=== PATIENT | female | born 1985 | race Asian ===

== ENCOUNTER 2020-01-06 22:26 | Observation (INO) | payer OTHER ==
[~2020-01-06] VITALS: Ht 157.5 cm; Wt 63.5 kg
[2020-01-06] MEDS: TERBUTALINE SULFATE 1MG/ML VIAL SUBCUT PRN (23:52)
[2020-01-06] MEDS: LACTATED RINGERS 1,000 ML IV SCH (23:54)
[2020-01-07] MEDS: LACTATED RINGERS 1,000 ML IV SCH ×5 (01:59→20:06)
[2020-01-07] MEDS ORDERED: BETAMETHASONE ACET/BETAMET 30 MG/5 ML VIAL IM ONE (02:00)
[2020-01-07] MEDS: TERBUTALINE SULFATE 1MG/ML VIAL SUBCUT PRN (02:38)
[2020-01-07 03:15] LABS: CLARITY URINE CLEAR (CLEAR); COLOR URINE YELLOW (YELLOW); KETONES URINE 3+ (NEGATIVE); LEUKOCYTE ESTERASE URINE NEGATIVE (NEGATIVE); NITRITE URINE NEGATIVE (NEGATIVE); OCCULT BLOOD URINE NEGATIVE (NEGATIVE); PROTEIN URINE NEGATIVE (NEGATIVE); SPECIFIC GRAVITY URINE 1.005 (1.005-1.030); UROBILINOGEN URINE 0.2 E.U./dL (0.2-1.0)
[2020-01-07] MEDS ORDERED: ACETAMINOPHEN 500MG TABLET PO NR (12:30)
[2020-01-07] MEDS ORDERED: TERBUTALINE SULFATE 1MG/ML VIAL SUBCUT NR (14:30)
[2020-01-07] MEDS ORDERED: METHYLERGONOVINE MALEATE 0.2 MG/ML IM PRN (18:45)
[2020-01-07] MEDS ORDERED: ACETAMINOPHEN 500MG TABLET PO ONE (18:45)
[2020-01-07] MEDS ORDERED: NALOXONE HCL 0.4 MG/ML 1ML VIAL IM PRN (18:45)
[2020-01-07] MEDS ORDERED: LACTATED RINGERS 1,000 ML IV SCH (19:10)
[2020-01-07] MEDS ORDERED: DEXT 5%/LR + PITOCIN 20UNITS/L 1,000 ML IV SCH (19:15)
[2020-01-07] MEDS ORDERED: LIDOCAINE HCL 1% 20ML VIAL (Pyxis) INJ INFIL SCH (19:30)
[2020-01-07] MEDS ORDERED: AMPICILLIN 2,000 MG in SODIUM CHLORIDE 0.9% 100 ML IV SCH (20:00)
[2020-01-07] MEDS ORDERED: AZITHROMYCIN 500MG in DEXTROSE 5% WATER 250ML IV SCH (21:00)
[2020-01-07] MEDS ORDERED: MAGNESIUM 2 G PREMIX 50 ML IV SCH (22:00)
[2020-01-07] MEDS ORDERED: MAGNESIUM 4 G PREMIX 100 ML IV SCH (22:00)
[2020-01-08] MEDS ORDERED: BETAMETHASONE ACET/BETAMET 30 MG/5 ML VIAL IM SCH (02:00)
[2020-01-08] MEDS: AMPICILLIN 1,000 MG in SODIUM CHLORIDE 0.9% 50 ML IV SCH ×2 (02:35→08:03)
[2020-01-08] MEDS: MAGNESIUM SULFATE 20 GM in DEXT 5% WATER 460 ML IV SCH ×2 (05:50→12:17)
[2020-01-08] MEDS: LACTATED RINGERS 1,000 ML IV SCH (08:01)
[2020-01-08] MEDS ORDERED: AZITHROMYCIN 500 MG TABLET PO SCH (09:00)
[2020-01-08 10:13] LABS: HEMATOCRIT. 35.7 % (36.0-48.0); HEMOGLOBIN. 12.2 g/dL (12.0-16.0); MEAN CORPUSCULAR HEMOGLOBIN 30.1 pg (28.0-32.0); MEAN CORPUSCULAR VOLUME 87.8 fL (81.0-99.0); MEAN PLATELET VOLUME 8.1 fl (7.4-10.4); PLATELET 262 x1000/uL (130-400); RED BLOOD CELL COUNT 4.07 mill/uL (4.2-5.4); RED CELL DISTRIBUTION WIDTH 13.7 % (11.6-14.6)
[2020-01-08 10:17] LABS: *AMPHETAMINES SCREEN URINE NEGATIVE (NEGATIVE)
[2020-01-08 10:18] LABS: *BARBITURATES SCREEN URINE NEGATIVE (NEGATIVE); *BENZODIAZEPINES SCREEN URINE NEGATIVE (NEGATIVE); *COCAINE SCREEN URINE NEGATIVE (NEGATIVE); METHADONE URINE SCREEN NEGATIVE (NEGATIVE); OPIATES URINE SCREEN NEGATIVE (NEGATIVE); PHENCYCLIDINE URINE SCREEN NEGATIVE (NEGATIVE)
[2020-01-08 10:19] LABS: CANNABINOID URINE SCREEN NEGATIVE (NEGATIVE)
[2020-01-08 10:22] LABS: INR 0.9; PARTIAL THROMBOPLASTIN TIME 25.7 sec (23.4-31.0); PROTHROMBIN TIME 9.8 sec (9.6-11.0)
[2020-01-08 11:03] LABS: HEPATITIS B SURFACE ANTIGEN NEGATIVE
[2020-01-08 11:08] LABS: PLATELET ESTIMATE NORMAL
== END 2020-01-08 15:12 | disposition left against medical advice (07) ==
LOC: 8 EST LDRP 22:26
PROVIDERS: ADMIT Obstetrics & Gynecology; ATTEND Obstetrics & Gynecology
DX: O26.893 Other specified pregnancy related conditions, third trimester (principal); R10.9 Unspecified abdominal pain; O62.9 Abnormality of forces of labor, unspecified; Z98.891 History of uterine scar from previous surgery; Z3A.31 31 weeks gestation of pregnancy
CPT/HCPCS: 36415; 76805; 76818; 80305; 81003; 83735; 85025; 85610; 85730; 86592; 86703; 86762; 86850; 86900; 86901; 87340; 96365; 96366; 96367; 96372; 99281; G0378; J0290; J0456; J0702; J3105; J3475; J7050; J7060; J7120